=== PATIENT | male | born 1975 | race Caucasian/White ===

== ENCOUNTER 2016-05-26 02:42 | Emergency (ER) | payer BC ==
[~2016-05-26] VITALS: Ht 176.5 cm; Wt 130.6 kg
[~2016-05-26 02:42] MED LIST: HYDR25TA4 PO; LPR25 PO; METF-384 PO; MULT-506 PO; SUMA50TA15 PO
[2016-05-26 02:49] VITALS: Ht 176.5 cm; Wt 130.6 kg
[2016-05-26] MEDS ORDERED: SODIUM CHLORIDE 0.9% 1000ML 1,000 ML IV STA (03:14)
[2016-05-26] MEDS ORDERED: HYDROmorphone INJ 1 MG/ML SYR IV STA (03:14)
[2016-05-26] MEDS ORDERED: DiphenhydrAMINE HCL 50 MG/ML VIAL IV STA (03:14)
[2016-05-26] MEDS ORDERED: PROCHLORPERAZINE 5 MG/ML 2 ML VIAL IV STA (03:14)
--- NOTE | 2016-05-26 03:19 | EMERGENCY ROOM VISIT NOTE ---
History Report prepared by Feliciano: Cristina Olivier Under the Supervision of: Dr. Janice Gonzalez M.D. First contact with patient: 03:00 Chief Complaint: FLU LIKE SX Stated Complaint: DIAGNOSED W/ FLU-CHEST PAIN,HEAD PAIN, History of Present Illness The patient is a 40 year old male who presents to the Emergency Room with complaints of a worsening, gradual onset headache over the past 5 days. The patient states that he went to [facility] in [place] 3 days ago and was diagnosed with the flu. He was prescribed Tamiflu and is still taking it. Since then, he has had a headache, sore throat, and cough. His headache has been worsening and is exacerbated with light and changing positions. His cough is only occasional, but when he does cough, it is harsh and productive with thick sputum. 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 He has been taking ibuprofen. He has a history of migraine headaches but states his current headache feels a little different than a normal migraine. Denies neck pain, abdominal pain or other complaints. Past medical history includes type 2 diabetes. Source of History: patient Onset: 5 days ago Position: head Timing: worsening Modifying Factors (Worsening): other (light, position change) Associated Symptoms: + cough, + fevers (low grade), + sorethroat, No abdominal pain, No neck pain Review of Systems See HPI for pertinent positives & negatives. A total of 10 systems reviewed and were otherwise negative. Past Medical & Surgical Medical Problems: (1) Bronchitis (2) DEPRESSIVE DISORDER NEC (3) DIAB GIOVANNA WO COMPL, TYPE II OR UNSPEC TYPE, NOT UNCNTRLD (4) Diabetes (5) FAM HX-DIABETES MELLITUS (6) FAMILY HX-MALIGNANCY NOS (7) HTN (hypertension) (8) Hx of right shoulder surgery (9) HYPERLIPIDEMIA NEC/NOS (10) MIGRAINE UNSPECIFIED W/O INTRACT MGRN W/O STATUS MIGRAINOSUS (11) Pneumonia (12) TOBACCO USE DISORDER Surgical Problems: (1) History of herniorrhaphy (2) Hx of shoulder surgery Family History Diabetes mellitus FHx: gallbladder disease Hypertension Social History Smoking Status: Current Every Day Smoker Alcohol Use: none Marital Status: Occupation Status: employed Current/Historical Medications Scheduled Amoxicillin & Pot Clavulanate (Augmentin 875-125 mg), 875 MG PO BID Escitalopram Oxalate (Lexapro), 20 MG PO DAILY Metformin Hcl (Glucophage), 1,000 MG PO BID Multivitamin (Multivitamin), 1 TAB PO DAILY Oseltamivir (Tamiflu), 75 MG PO BID Sumatriptan Succinate (Imitrex), 100 MG PO PRN Allergies Coded Allergies: Dust (Verified Allergy, Unknown, CHALK DUST, 02/02/16) Latex1 -Allergic Contact Dermititis (Verified Allergy, Unknown, RASH, 02/01) PT STATES LATEX CAUSES REDNESS/SWELLING Physical Exam Vital Signs Date Time Temp Pulse Resp B/P Pulse Ox O2 Delivery O2 Flow Rate FiO2 05/26/16 06:16 82 18 120/85 95 05/26/16 04:04 79 18 121/68 94 Room Air 05/26/16 02:49 36.8 103 20 120/86 94 Room Air Physical Exam Vital signs reviewed. General: Anxious-appearing 40 year old male, tearful, in some discomfort. HEENT: No scleral icterus, PERRLA, neck supple. Atraumatic. Cardiovascular: Regular rate and rhythm, no extra sounds. Pulmonary: Clear to auscultation bilaterally, normal work of breathing. Abdomen: Soft, nontender, nondistended, positive bowel sounds. Musculoskeletal: Atraumatic, no peripheral edema. Neurologic: Patient awake alert and oriented x 3, full strength in all 4 extremities. Cranial nerves 2 through 12 grossly intact. No meningeal signs. Skin: Warm, dry, no rash Medical Decision & Procedures ER Provider Diagnostic Interpretation: X-ray results as stated below per my interpretation. Other radiology results as stated below per my review and radiologist interpretation: CT HEAD: Comparison is made to CT head dated 02/02/16. No ICH, mass effect, or edema. Palma -white differentiation preserved. No evidence of skull fracture. Ethmoid and right sphenoid sinusitis. Mastoid air cells clear. Radiologist: Sarahi Newsome MD Chest x-ray: Mild interstitial prominence, normal mediastinum, no focal lung consolidation, no failure. Laboratory Results 05/26/16 03:14 Red Blood Count 4.95, Mean Corpuscular Volume 87.1, Mean Corpuscular Hemoglobin 31.1, Mean Corpuscular Hemoglobin Concent 35.7, Mean Platelet Volume 11.5, Neutrophils (%) (Auto) 61.7, Lymphocytes (%) (Auto) 27.2, Monocytes (%) (Auto) 8.7, Eosinophils (%) (Auto) 1.8, Basophils (%) (Auto) 0.3, Neutrophils # (Auto) 4.48, Lymphocytes # (Auto) 1.97, Monocytes # (Auto) 0.63, Eosinophils # (Auto) 0.13, Basophils # (Auto) 0.02 05/26/16 03:14 Test 05/26/16 03:14 05/26/16 05:48 White Blood Count 7.25 K/uL (4.8-10.8) Red Blood Count 4.95 M/uL (4.7-6.1) Hemoglobin 15.4 g/dL (14.0-18.0) Hematocrit 43.1 % (42-52) Mean Corpuscular Volume 87.1 fL (80-100) Mean Corpuscular Hemoglobin 31.1 pg (25-34) Mean Corpuscular Hemoglobin Concent 35.7 g/dl (32-36) Platelet Count 148 K/uL (130-400) Mean Platelet Volume 11.5 fL (7.4-10.4) Neutrophils (%) (Auto) 61.7 % Lymphocytes (%) (Auto) 27.2 % Monocytes (%) (Auto) 8.7 % Eosinophils (%) (Auto) 1.8 % Basophils (%) (Auto) 0.3 % Neutrophils # (Auto) 4.48 K/uL (1.4-6.5) Lymphocytes # (Auto) 1.97 K/uL (1.2-3.4) Monocytes # (Auto) 0.63 K/uL (0.11-0.59) Eosinophils # (Auto) 0.13 K/uL (0-0.5) Basophils # (Auto) 0.02 K/uL (0-0.2) RDW Standard Deviation 41.9 fL (36.4-46.3) RDW Coefficient of Variation 13.1 % (11.5-14.5) Immature Granulocyte % (Auto) 0.3 % Immature Granulocyte # (Auto) 0.02 K/uL (0.00-0.02) Anion Gap 10.0 mmol/L (3-11) Est Creatinine Clear Calc Drug Dose 132.4 ml/min Estimated GFR () 108.6 Estimated GFR (Non- 93.7 BUN/Creatinine Ratio 9.4 (10-20) Calcium Level 9.0 mg/dl (8.5-10.1) Total Bilirubin 0.4 mg/dl (0.2-1) Direct Bilirubin 0.1 mg/dl (0-0.2) Aspartate Amino Transf (AST/SGOT) 24 U/L (15-37) Alanine Aminotransferase (ALT/SGPT) 61 U/L (12-78) Alkaline Phosphatase 100 U/L (45-117) Total Protein 7.4 gm/dl (6.4-8.2) Albumin 3.4 gm/dl (3.4-5.0) Beta-Hydroxybutyric Acid 0.82 mg/dL (0.2-2.81) Bedside Glucose 291 mg/dl (70-99) Laboratory results per my review. Medications Administered Medications (Trade) Dose Ordered Sig/Trev Route Start Time Stop Time Status Last Admin Dose Admin Sodium Chloride (Nss 1000ml) 1,000 ml @ 999 mls/hr Q1H1M STAT IV 05/26/16 03:14 05/26/16 04:14 DC 05/26/16 03:32 999 MLS/HR Hydromorphone HCl (Dilaudid Inj) 1 mg NOW STAT IV 05/26/16 03:14 05/26/16 03:17 DC 05/26/16 03:33 1 MG Prochlorperazine Edisylate (Compazine Inj) 10 mg NOW STAT IV 05/26/16 03:14 05/26/16 03:17 DC 05/26/16 03:32 10 MG Diphenhydramine HCl (Benadryl Inj) 25 mg NOW STAT IV 05/26/16 03:14 05/26/16 03:17 DC 05/26/16 03:14 25 MG Insulin Human Regular (novoLIN-R U-100 PER UNIT) 10 units NOW STAT SC 05/26/16 04:03 05/26/16 04:04 DC 05/26/16 04:26 10 UNITS Amoxicillin/ Clavulanate Potassium (Augmentin Tab) 875 mg NOW ONCE PO 05/26/16 04:15 05/26/16 04:16 DC 05/26/16 04:23 875 MG ED Course 0313: The patient was evaluated in room B10. A complete history and physical examination was performed. Ordered Benadryl Inj 25 mg IV, Compazine Inj 10 mg IV , Dilaudid Inj 1 mg IV, NSS 1000 ml @ 999 mls/hr IV. 0403: Ordered Insulin Human Regular 10 units SC. 0415: Ordered Augmentin Tab 875 mg PO. 0602: Upon reevaluation, the patient appeared to have improvement of his symptoms. I discussed findings with the patient. He verbalized agreement of the treatment plan. The patient was discharged home. Medical Decision Differential diagnosis: Intracranial hemorrhage, intracranial mass, migraine headache, tension headache , sinusitis, meningitis This pt was evaluated and appeared to be in significant discomfort. IV access was obtained and lab work was drawn. PT was placed on the cardiac tech. He was hydrated with NSS, given IV compazine, benadryl and dilaudid with good results. Lab work indicates an elevated glucose. Pt was given SQ regular insulin 10 units. BG showed some improvement. CT head reveals evidence of acute sinusitis, no IC abnl. Pt was reevaluated and doing well. Pt was started on 10 day course of Augmentin. He was d/c to f/u with his PCP this week and return to the ED for worsening of symptoms or any medical concerns. He will return to the ED for worsening of symptoms or any medical concerns. Impression Primary Impression: MIGRAINE UNSPECIFIED W/O INTRACT MGRN W/O STATUS MIGRAINOSUS Additional Impressions: Sinusitis, acute, sphenoidal Sinusitis, acute ethmoidal Influenza Scribe Attestation The scribe's documentation has been prepared under my direction and personally reviewed by me in its entirety. I confirm that the note above accurately reflects all work, treatment, procedures, and medical decision making performed by me. Departure Information Dispostion Home / Self-Care Prescriptions Amoxicillin & Pot Clavulanate (Augmentin 875-125 mg) 1 Tab Tab 875 MG PO BID for 10 Days, #20 TAB Prov: Janice Gonzalez M.D. 05/26/16 Referrals RV. Garg MD (PCP) Patient Instructions [facility] Additional Instructions Diagnosis: Headache, influenza Drink plenty of clear fluids. Tylenol 650 mg every 6 hours as needed for pain/fever. Augmentin 875 mg twice daily for 10 days. Continue other medications as prescribed. Follow up with your doctor this week for reevaluation. Return to emergency for worsening of symptoms or any medical concerns. Problem Qualifiers Additional Impressions: Sinusitis, acute, sphenoidal Recurrence: not specified as recurrent Qualified Codes: J01.30 - Acute sphenoidal sinusitis, unspecified Sinusitis, acute ethmoidal Recurrence: not specified as recurrent Qualified Codes: J01.20 - Acute ethmoidal sinusitis, unspecified
[2016-05-26 03:31] LABS: BASO % 0.3 %; BASO ABS # 0.02 K/uL (0-0.2); COMPLETE YES; EOS % 1.8 %; HEMATOCRIT 43.1 % (42-52); IG% 0.3 %; LYMPH % 27.2 %; LYMPH ABS # 1.97 K/uL (1.2-3.4); MEAN CELL VOLUME 87.1 fL (80-100); MEAN CORPUSCULAR HEMOGLOBIN 31.1 pg (25-34); MEAN CORPUSCULAR HGB CONC 35.7 g/dl (32-36); MEAN PLATELET VOLUME 11.5 fL (7.4-10.4); MONO % 8.7 %; NEUT % 61.7 %; PLATELET COUNT 148 K/uL (130-400); RED BLOOD COUNT 4.95 M/uL (4.7-6.1); WHITE BLOOD COUNT 7.25 K/uL (4.8-10.8)
[2016-05-26] MEDS ORDERED: OSEL75CA12 PO (03:50)
[2016-05-26] MEDS ORDERED: ESCI1TAB10 PO (03:52)
[2016-05-26] MEDS ORDERED: SUMA100T16 PO (03:53)
[2016-05-26 04:00] LABS: BUN/CREATININE RATIO 9.4 (10-20); POTASSIUM 3.8 mmol/L (3.5-5.1)
[2016-05-26] MEDS ORDERED: NovoLIN-R INSULIN PER UNIT CHARGE SC STA (04:03)
[2016-05-26 04:10] LABS: BETA-HYDROXYBUTYRATE 0.82 mg/dL (0.2-2.81)
[2016-05-26] MEDS ORDERED: AMOXICILLIN/CLAVULANATE TAB 875 MG TAB PO ONE (04:15)
[2016-05-26 06:16] VITALS: BP 120/85; PULSE 82; O2SAT 95
[2016-05-26] MEDS ORDERED: AMOX875T PO (06:19)
--- NOTE | 2016-05-26 07:15 | DIAGNOSTIC IMAGING REPORT ---
CHEST ONE VIEW PORTABLE CLINICAL HISTORY: Cough, flu. COMPARISON STUDY: Chest radiograph March 30, 2014. FINDINGS: Lung volumes are normal. No consolidation is identified. There is no pneumothorax or pleural effusion. Cardiac size is normal. Mediastinal contours are normal. Pulmonary vascularity is normal. IMPRESSION: No acute cardiopulmonary findings. Electronically signed by: Shaheed Owens M.D. 05/26/2016 7:14 AM Dictated Date/Time: 05/26/2016 7:14 AM
--- NOTE | 2016-05-26 07:17 | DIAGNOSTIC IMAGING REPORT ---
CT OF THE HEAD WITHOUT CONTRAST CLINICAL HISTORY: Headache. COMPARISON STUDY: Head CT February 02, 2016. CT DOSE: 651.12 mGy.cm TECHNIQUE: Helical axial images of the head were obtained without IV contrast. Automated exposure control was utilized for the study. FINDINGS: No acute intracranial hemorrhage, midline shift or mass effect is present. Note is made of a cavum of septum pellucidum. Ventricular system is stable. There are no findings to suggest acute dural sinus thrombosis or acute territorial infarct. There is an air-fluid level within the right sphenoid sinus. There is moderate mucosal thickening of the ethmoid sinuses. There is no calvarial abnormality. IMPRESSION: 1. No acute intracranial findings. 2. Right sphenoid and ethmoid sinusitis, likely acute. Electronically signed by: Shaheed Owens M.D. 05/26/2016 7:16 AM Dictated Date/Time: 05/26/2016 7:14 AM
== END 2016-05-26 06:18 | disposition home or self-care (01) ==
LOC: C.EDB 02:43
DX: J01.30 Acute sphenoidal sinusitis, unspecified (principal); J01.20 Acute ethmoidal sinusitis, unspecified; G43.909 Migraine, unspecified, not intractable, without status migrainosus; J11.1 Influenza due to unidentified influenza virus with other respiratory manifestations; I10 Essential (primary) hypertension; E11.9 Type 2 diabetes mellitus without complications; E78.5 Hyperlipidemia, unspecified; F32.9 Major depressive disorder, single episode, unspecified; F17.200 Nicotine dependence, unspecified, uncomplicated; Z98.890 Other specified postprocedural states; Z79.84 Long term (current) use of oral hypoglycemic drugs; Z79.899 Other long term (current) drug therapy; Z91.040 Latex allergy status; Z91.09 Other allergy status, other than to drugs and biological substances; Z83.3 Family history of diabetes mellitus; Z83.79 Family history of other diseases of the digestive system; Z82.49 Family history of ischemic heart disease and other diseases of the circulatory system

== ENCOUNTER 2020-12-12 19:34 | Inpatient (IN) ==
[2020-12-12] MEDS ORDERED: ACETAMINOPHEN 1,000 MG/100 ML VIAL IV STA (19:51)
[2020-12-12] MEDS ORDERED: SODIUM CHLORIDE 0.9% 1000ML 1,000 ML IV SCH (20:00)
[2020-12-12] MEDS ORDERED: CEFEPIME 2,000 MG/20 ML VIAL IV STA (20:03)
[2020-12-12] MEDS ORDERED: VANCOMYCIN HCL 2,000 MG in SODIUM CHLORIDE 0.9% 500 ML IV ONE (20:03)
[2020-12-12] MEDS ORDERED: VANCOMYCIN CONSULT ACTIVE PRN (20:03)
[2020-12-12 20:17] LABS: Basophils % (auto) 0.5 %; Eosinophils # (auto) 0.58 K/uL (0-0.5); Eosinophils % (auto) 2.8 %; Hematocrit (blood only) 45.1 % (42-52); Immature Granulocytes % (auto) 0.5 %; Lymphocytes # (auto) 3.93 K/uL (1.2-3.4); Lymphocytes % (auto) 19.2 %; Mean Corpuscular Hemoglobin 31.6 pg (25-34); Mean Corpuscular Hgb Conc 35.5 g/dL (32-36); Mean Platelet Volume 10.7 fL (7.4-10.4); Monocytes # (auto) 1.34 K/uL (0.11-0.59); Monocytes % (auto) 6.6 %; Neutrophils % (auto) 70.4 %; Platelet Count 313 K/uL (130-400); RDW Standard Deviation 42.1 fL (36.4-46.3); Red Blood Count 5.07 M/uL (4.7-6.1); White Blood Count 20.45 K/uL (4.8-10.8)
[2020-12-12] MEDS ORDERED: OPTIRAY 320 100ml IV ONE (20:17)
[2020-12-12 20:22] LABS: iSTAT Creatinine 0.7 mg/dl (0.6-1.3); iSTAT Hemoglobin 16.3 g/dl (14.0-18.0); iSTAT Ionized Calcium 1.09 mmol/l (1.12-1.32); iSTAT Potassium 4.4 mmol/L (3.3-5.0)
[2020-12-12 21:04] LABS: Albumin Globulin Ratio 0.7 (0.9-2); Albumin Level 3.6 gm/dl (3.4-5.0); BUN Creatinine Ratio 14.3 (10-20); Bilirubin,Total 0.6 mg/dl (0.2-1); Calcium 9.7 mg/dl (8.5-10.1); Creatinine Clr Calc Pharmacy 122.9 ml/min; Est GFR (African American) 120.2 ml/min; Est GFR (Non-African American) 103.7 ml/min; Globulin 5.1 gm/dl (2.5-4.0); Total Protein 8.7 gm/dl (6.4-8.2)
[2020-12-12] MEDS ORDERED: MoRPHine SULFATE 4 MG/ML 1 ML CARP\\VIAL IV STA (21:42)
--- NOTE | 2020-12-12 22:17 | History & Physical Report ---
Date of Service December 12, 2020 Assessment & Plan (1) Diabetes mellitus type 2, uncontrolled: Plan: 45 yo M with uncontrolled DM2, HLD, HTN, obesity admitted for management of hyperglycemia and scalp/occipital cellulitis. 1. 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 Occipital Cellulitis - 3x5x7 cm thickening of skin as noted on CT head without drainable abscess - wound culture pending - warm compresses, elevation of head of bed - vanc + cefepime in pt with uncontrolled DM2 - no signs of intracranial infection - skin marked with pen, monitor for spread 3. Pain - received 4 mg IV morphine in ED for management of head pain from cellulitis - additional 300 mg Gabapentin given to help with nerve compression likely contributing to severe pain - continue PO/IV tylenol, morphine 2mg IV Q6H PRN Chronic problems: HTN - not on medication HLD - not on medication, would benefit from starting on high dose statin DVT ppx: low risk FEN/GI: Dm2, famotidine Code Status: full code Dispo: med/surg (2) Dyslipidemia: (3) Hypertension: (4) Incisional hernia: (5) Morbid obesity: (6) Umbilical hernia: (7) Ventral hernia: (8) Hyperglycemia: (9) Cellulitis of occipital region of scalp: History of Present Illness Chief Complaint: head pain Primary Care Provider: Jackeline Baez MD 45 yoM with uncontrolled DM in ER for worsening headache and neck pain. States that he had a pimple "or what i thought was a pimple" on the back right side of his neck a few days ago and proceeded to pop it. He states after that, the irritation started spreading along his head and neck and is now causing constant head/neck pain. Denies any radiation of pain elsewhere. No blurring of vision, lightheadedness,dizziness. Does have pain with flexion, extension, lateral rotation of head bilaterally. Says pain starts in the back right of neck and wraps up the right side of his head. Tried warm and cold compresses at home, ibuprofen, tylenol, excedrin migraine without any relief. No hx of infections like this on his head but has been admitted for groin infections/cysts before. Allergies Allergy/AdvReac Type Severity Reaction Status Date / Time house dust Allergy Unknown Chalk dust Verified 12/12/20 20:20 - Unknown latex Allergy Unknown Rash Verified 12/12/20 20:20 No Known Drug Allergies AdvReac Unknown Verified 12/12/20 20:20 Home Medications Medication Instructions Recorded Confirmed Type multivitamin 1 tab PO QAM 08/13/18 12/12/20 History Past Med/Surg History Medical History Current smoker Diabetes HTN (hypertension) Obesity Scrotal abscess (11/10/13) Scrotal abscess Ventral hernia Surgical History History of arthroscopic knee surgery History of herniorrhaphy History of umbilical hernia repair History of ventral hernia repair Has mesh across his entire abdomen-Dr. Gomez Hx of shoulder surgery Family History Mother Diabetes Multiple sclerosis Sister SASCHA (obstructive sleep apnea) Autoimmune disorder Social History Smoking Status: Heavy tobacco smoker Tobacco Type: Cigarettes Years Smoked: 25; Cigarettes Per Day: 20; Second Hand Exposure: No; Do You Dip or Chew Tobacco: No; Tobacco Cessation Education Requested by Patient: No Hx Alcohol Use: Yes Alcohol type: beer Hx Substance Use: No Preferred Language: Burundian Communication Ability: Effective Wrap Checker Required: No Beliefs That Will Affect Care: None marital status: Single Current Living Situation: Family Current Living Situation Comment: Lives with 15 year old son. 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 Other Information That Helps Us Care for You: No Feels Safe at Home: Yes Safety Concerns: Feels Safe At This Time Assistive Devices: Glasses Review of Systems Constitutional: no fever, no chills, no sweats and no fatigue Eyes: no blind spots and no discharge Ear, Nose, Mouth, Throat: no hearing loss and no nasal congestion Respiratory: no cough and no dyspnea Cardiovascular: no chest pain, no dyspnea on exertion and no edema Gastrointestinal: no abdominal pain, no nausea, no vomiting, no constipation, no diarrhea/loose stools and no blood in stools Musculoskeletal: no joint pain and no myalgia Integumentary: + lesions, + wounds, + erythema and + skin swelling Neurologic: + headache(s); no tingling, no numbness, no dizziness and no abnormal speech Endocrine: no fatigue Physical Exam Physical Exam: Constitutional: obese, visibly distressed and crying in bed Head: erythematous, swollen, warm cellulitic area extending from posterior right base of neck to above right ear with central draining punctum. Eyes: EOMI, pupils equal and reactive bilaterally, no scleral icterus Cardiac: RRR, no murmurs, gallops or rubs. Normal S1, S2 Pulm: CTA BL, no wheezes, rhonchi, crackles or rubs, moving air well throughout both lungs Abd: soft, nontender, nondistended, normal bowel sounds, no rebound or guarding Extremities: 2+ peripheral pulses, no edema Neuro: no focal deficits, moving all 4 limbs, A&Ox3 Results & Data Results & Data ([facility]) Vital Signs (Past 12 Hours) Vital Signs Temp Pulse Pulse Resp BP BP Pulse Ox 12/12/20 21:49 97 H 16 135/85 97 12/12/20 20:50 101 H 20 146/94 H 97 12/12/20 19:43 36.4 C L 124 H 20 82/45 L 98 Laboratory Results Laboratory Results WBC 20.45 K/uL (4.8-10.8) H 12/12/20 20:00 RBC 5.07 M/uL (4.7-6.1) 12/12/20 20:00 Hgb 16.0 g/dL (14.0-18.0) 12/12/20 20:00 POC Hgb 16.3 g/dl (14.0-18.0) 12/12/20 20:10 Hct 45.1 % (42-52) 12/12/20 20:00 POC Hct 48 % (42-52) 12/12/20 20:10 MCV 89.0 fL (80-100) 12/12/20 20:00 MCH 31.6 pg (25-34) 12/12/20 20:00 MCHC 35.5 g/dL (32-36) 12/12/20 20:00 RDW Std Deviation 42.1 fL (36.4-46.3) 12/12/20 20:00 RDW Coeff of Giselle 13.0 % (11.5-14.5) 12/12/20 20:00 Plt Count 313 K/uL (130-400) 12/12/20 20:00 MPV 10.7 fL (7.4-10.4) H 12/12/20 20:00 Immature Gran % (Auto) 0.5 % 12/12/20 20:00 Neut % (Auto) 70.4 % 12/12/20 20:00 Lymph % (Auto) 19.2 % 12/12/20 20:00 Buchanan % (Auto) 6.6 % 12/12/20 20:00 Eos % (Auto) 2.8 % 12/12/20 20:00 Baso % (Auto) 0.5 % 12/12/20 20:00 Neut # (Auto) 14.40 K/uL (1.4-6.5) H 12/12/20 20:00 Lymph # (Auto) 3.93 K/uL (1.2-3.4) H 12/12/20 20:00 Buchanan # (Auto) 1.34 K/uL (0.11-0.59) H 12/12/20 20:00 Eos # (Auto) 0.58 K/uL (0-0.5) H 12/12/20 20:00 Baso # (Auto) 0.10 K/uL (0-0.2) 12/12/20 20:00 Immature Gran # (Auto) 0.10 K/uL (0.00-0.02) H 12/12/20 20:00 PT Cancelled 12/12/20 20:00 INR Cancelled 12/12/20 20:00 APTT Cancelled 12/12/20 20:00 PTT Ratio Cancelled 12/12/20 20:00 POC Sodium 136 mmol/L (135-144) 12/12/20 20:10 Sodium 132 mmol/L (136-145) L 12/12/20 20:00 POC Potassium 4.4 mmol/L (3.3-5.0) 12/12/20 20:10 Potassium mmol/L (3.5-5.1) 12/12/20 20:00 POC Chloride 98 mmol/L (101-112) L 12/12/20 20:10 Chloride 100 mmol/L (98-107) 12/12/20 20:00 Carbon Dioxide 23 mmol/L (21-32) 12/12/20 20:00 POC Total CO2 25 mmol/L (24-31) 12/12/20 20:10 Anion Gap 9.0 (3-11) 12/12/20 20:00 POC Anion Gap 19.0 mmol/L (16-25) 12/12/20 20:10 POC BUN 16 mg/dl (7-18) 12/12/20 20:10 BUN 13 mg/dl (7-18) 12/12/20 20:00 Creatinine 0.88 mg/dl (0.6-1.4) 12/12/20 20:00 POC Creatinine 0.7 mg/dl (0.6-1.3) 12/12/20 20:10 Est Cr Clr Drug Dosing 122.9 ml/min 12/12/20 20:00 Est GFR ( Amer) 120.2 ml/min 12/12/20 20:00 Est GFR (Non-Af Amer) 103.7 ml/min 12/12/20 20:00 BUN/Creatinine Ratio 14.3 (10-20) 12/12/20 20:00 Glucose 309 mg/dl (70-99) H* 12/12/20 20:00 POC Glucose 323 mg/dl (70-99) H* 12/12/20 19:59 POC Glucose (other) 319 mg/dl (70-99) H 12/12/20 20:10 Lactate 1.3 mmol/L (0.4-2.0) 12/12/20 20:02 Calcium 9.7 mg/dl (8.5-10.1) 12/12/20 20:00 POC Ioniz Calcium Veronica 1.09 mmol/l (1.12-1.32) L 12/12/20 20:10 Magnesium mg/dl (1.8-2.4) 12/12/20 20:00 Total Bilirubin 0.6 mg/dl (0.2-1) 12/12/20 20:00 AST U/L (15-37) 12/12/20 20:00 ALT 19 U/L (12-78) 12/12/20 20:00 Alkaline Phosphatase 116 U/L (45-117) 12/12/20 20:00 Total Protein 8.7 gm/dl (6.4-8.2) H 12/12/20 20:00 Albumin 3.6 gm/dl (3.4-5.0) 12/12/20 20:00 Globulin 5.1 gm/dl (2.5-4.0) H 12/12/20 20:00 Albumin/Globulin Ratio 0.7 (0.9-2) L 12/12/20 20:00 Beta-Hydroxybutyric Acd mg/dl (0.2-2.81) 12/12/20 20:00 COVID-19 Eval Order Covid19 at [facility] 12/12/20 20:19 SARS-CoV-2 (PCR) NEGATIVE (Negative) 12/12/20 20:[address] Head - per STAT rad - Large area of soft tissue thickening right occiput measuring about 3 x 5 x 6cm extending to the craniocervical junction compatible with infection/inflammation. No drainable or mature absccess. No adjacent bony changes or acute intracranial abnormality Medications Administered Discontinued Medications Sodium Chloride (Nss 1000ml) 1,000 mls @ 999 mls/hr IV .Q1H1M OLGA Stop: 12/12/20 21:00 Last Infusion: 12/12/20 21:46 Dose: 0 mls/hr Documented by: [id number] Admin: 12/12/20 20:45 Dose: 999 mls/hr Documented by: [id number] Acetaminophen (Ofirmev) 1,000 mg in 100 mls @ 400 mls/hr IV NOW STA Stop: 12/12/20 20:05 Last Infusion: 12/12/20 21:10 Dose: 0 mls/hr Documented by: [id number] Admin: 12/12/20 20:45 Dose: 400 mls/hr Documented by: [id number] Vancomycin HCl 2,000 mg/ (Sodium Chloride) 540 mls @ 200 mls/hr IV NOW ONE Stop: 12/12/20 22:44 Last Admin: 12/12/20 20:45 Dose: 200 mls/hr Documented by: [id number] Cefepime HCl (Maxipime) 2,000 mg in 20 mls @ 5 mls/min IV NOW STA; Protocol Stop: 12/12/20 20:06 Last Admin: 12/12/20 20:45 Dose: 5 mls/min Documented by: [id number] Ioversol (Optiray 320 100ml) 94 ml IV ONCE ONE Stop: 12/12/20 20:18 Last Admin: 12/12/20 20:18 Dose: 1 ml Documented by: [id number] Morphine Sulfate (Morphine Sulfate 4 Mg/Ml 1 Ml Carp\\Vial) 4 mg IV NOW STA Stop: 12/12/20 21:43 Last Admin: 12/12/20 21:46 Dose: 4 mg Documented by: [id number] Supervising Physician Co-Signing Physician Notes Patient seen and examined, chart reviewed, case discussed with Dr. Kulkarni and I agree with her assessment and plan as above. In brief, patient is a 45yo male with history of DM, HTN presenting with posterior scalp lesion/cellulitis and severe pain. He is afebrile, HD stable, denies complaints of fever/chills/nausea/vomiting/malaise. Afebrile, HD stable. Patient is in distress secondary to discomfort. Weeping Skin -posterior neck warm, red, thickened with purulent drainage HEENT - NC/AT, PERRL, MMM Heart - +S1/S2, regular, no m/r/g Lungs - CTA Abd - +BS, soft, NT/ND Ext - No edema Labs and images reviewed. Significant for WBC=20.44, Hu=479 Assessment/Plan - 45yo male with DM, HTN, Obestiy presenting with posterior scalp lesion and cellulitis. Afebrile, HD stable, no evidence of systemic infection or intracranial involvement. He is in considerable pain - possible neuropathic component as well. -Vanc/Cefepime -Warm compresses - may benefit from reimaging in a few days to see if abscess or drainable collection has formed -Pain control -Remainder of plan as above Resident Activity Tracking Resident Involvement: Resident Care Provided Care Provided: Adult Hospital Medicine
[2020-12-12] MEDS ORDERED: GABAPENTIN 300 MG CAP PO STA (22:36)
[2020-12-12] MEDS ORDERED: NovoLIN-R INSULIN PER UNIT CHARGE IV STA (23:02)
[2020-12-13] MEDS ORDERED: DEXTROSE 50% 50 ML SYRINGE IV PRN (00:14)
[2020-12-13] MEDS ORDERED: VANCOMYCIN CONSULT ACTIVE PRN (00:14)
[2020-12-13] MEDS ORDERED: GLUCOSE 40% GEL 15 GM TUBE PO PRN (00:14)
[2020-12-13] MEDS ORDERED: GLUCOSE 10 TABS/TUBE PO PRN (00:14)
[2020-12-13] MEDS ORDERED: GLUCAGON FOR INJ 1 MG VIAL SQ PRN (00:14)
[2020-12-13] MEDS ORDERED: CARBOHYDRATES FOR HYPOGLYCEMIA PO PRN (00:14)
--- NOTE | 2020-12-13 01:29 | Emergency Department Note ---
History of Present Illness General Chief complaint: Head Pain Stated complaint: BACK OF RIGHT SIDE HEAD PAIN Time Seen by Provider: 12/12/20 19:50 History of Present Illness Provider complaint: Headache fever Onset (ago): day(s) 2 Location: head Radiation: non-radiation Severity: severe Pain Consistency: + constant Maximum Pain Intensity: 9 Current Pain Intensity: 9 Quality: + aching Relieved By: + none Exacerbated By: + none Associated symptoms: + fever/chills, + headaches and + rash; no chest pain, no cough, no malaise, no nausea/vomiting, no shortness of breath, no syncope or no weakness 45-year-old male diabetic who is noncompliant with medications presents emergency department for headache and fever. Patient states he thought he had a pimple on the back of his head and he started picking at it and then it popped and was draining pus. He states over the last 2 days the pain around that area has become increasingly worse and so the drainage. He states his girlfriend stated she thought he might have been bit by a spider or another insect. He states he is not vaccinated as COVID-19 and is not compliant with his diabetes medications. Patient reports fever today. Home Medications Medication Instructions Recorded Confirmed Type multivitamin 1 tab PO QAM 08/13/18 12/12/20 History Allergies Allergy/AdvReac Type Severity Reaction Status Date / Time house dust Allergy Unknown Chalk dust Verified 12/12/20 20:20 - Unknown latex Allergy Unknown Rash Verified 12/12/20 20:20 No Known Drug Allergies AdvReac Unknown Verified 12/12/20 20:20 Past Med/Surg History Medical History (Updated 12/13/20 @ 01:42 by Bassam Howell) Current smoker Diabetes HTN (hypertension) Obesity Scrotal abscess (11/10/13) Scrotal abscess Ventral hernia Surgical History History of arthroscopic knee surgery History of herniorrhaphy History of umbilical hernia repair History of ventral hernia repair Has mesh across his entire abdomen-Dr. 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 Other Information That Helps Us Care for You: No Feels Safe at Home: Yes Safety Concerns: Feels Safe At This Time Assistive Devices: Glasses Review of Systems A total of 10 systems reviewed and were otherwise negative Physical Exam Vital Signs Vital Signs - 24 hr 12/12/20 19:43 12/12/20 20:50 12/12/20 21:00 Temperature 36.4 C L Temperature Source Temporal Artery Scan Pulse Rate 124 H 101 H 99 H Pulse Rate [Right] Pulse Rate from SpO2 Sensor 100 H Respiratory Rate 20 20 16 Respiratory Effort / Characteristics Respiratory Depth Blood Pressure 82/45 L 146/94 H 140/88 Blood Pressure [Right Arm] Blood Pressure Mean 57 111 105 Blood Pressure Mean [Right Arm] Pulse Oximetry 98 97 96 Oxygen Delivery Method Room Air Room Air Sepsis Recent Fever Within 48 Hours No Sepsis New/Unexplained Change in Mental Status N/A Sepsis Action Taken by Nursing Physician Notified 12/12/20 21:30 12/12/20 21:49 12/12/20 22:00 Temperature Temperature Source Pulse Rate 96 H 91 H Pulse Rate [Right] 97 H Pulse Rate from SpO2 Sensor 97 H 91 H Respiratory Rate 16 16 16 Respiratory Effort / Characteristics Non-Labored Spontaneous Respiratory Depth Normal Blood Pressure 136/85 122/84 Blood Pressure [Right Arm] 135/85 Blood Pressure Mean 102 96 Blood Pressure Mean [Right Arm] 101 Pulse Oximetry 98 97 97 Oxygen Delivery Method Room Air Sepsis Recent Fever Within 48 Hours Sepsis New/Unexplained Change in Mental Status Sepsis Action Taken by Nursing Physical Exam GENERAL: He is oriented to person, place, and time. He appears well-developed and well-nourished. He does not appear distressed. HENT: Exam performed. - Head: Large erythematous fluctuant lesion on the posterior scalp that is actively draining purulent discharge. - Right Ear: External ear normal. No mastoid tenderness. - Left Ear: External ear normal. No mastoid tenderness. - Mouth/Throat: The oropharynx is clear and moist. No trismus in the jaw. No dental abscesses or uvula swelling. No oropharyngeal exudate or tonsillar abscesses. EYES: Conjunctivae and EOM are normal. Pupils are equal, round, and reactive to light. Right eye exhibits no discharge. Left eye exhibits no discharge. No scleral icterus. NECK: Normal range of motion. Neck supple. No JVD present. No spinous process tenderness present. No carotid bruit present. No rigidity. No tracheal deviation and normal range of motion present. No Brudzinski's sign and no Kernig's sign noted. CV: Normal rate, regular rhythm, normal heart sounds and intact distal pulses. There is no peripheral edema. Palpable radial pulses bue. PULM/CHEST: Effort normal and breath sounds normal. No respiratory distress. No stridor. He has no wheezes. He has no rales. - Chest Wall: He exhibits no tenderness. ABD: The abdomen is soft. Bowel sounds are normal. He has no distension. No mass is present. There is no tenderness. There is no rebound, no guarding, no Kaye's sign and no tenderness at McBurney's point. Rovsig negative. MUSC/SKEL: Normal range of motion. There is no peripheral edema, tenderness or deformity. LYMPH: No cervical adenopathy. NEURO: He is alert and oriented to person, place, and time. He has normal strength. No cranial nerve deficit or sensory deficit. Coordination and gait normal. GCS eye subscore is 4. GCS verbal subscore is 5. GCS motor subscore is 6. Cerebellar tests wnl. PSYCH: He has a normal mood and affect. Behavior is normal. Judgment and thought content normal. Course Course 1950: The patient was evaluated in room B5. A complete history and physical exam was performed Cardiac monitoring: An order was placed for continuous cardiac monitoring. The monitor shows a rate of 110 with sinus tachycardia rhythm 2115: Vital signs stable. Labs elevated white blood cell count of 20. CT of the head shows no drainable fluid collection. Patient will be admitted for cellulitis of the occipital region. Patient treated with Vanco and cefepime. Administered Medications Discontinued Medications Gabapentin (Gabapentin 300 Mg Cap) 300 mg PO NOW STA Stop: 12/12/20 22:37 Last Admin: 12/12/20 23:43 Dose: 300 mg Documented by: [id number] Sodium Chloride (Nss 1000ml) 1,000 mls @ 999 mls/hr IV .Q1H1M OLGA Stop: 12/12/20 21:00 Last Infusion: 12/12/20 21:46 Dose: 0 mls/hr Documented by: [id number] Admin: 12/12/20 20:45 Dose: 999 mls/hr Documented by: [id number] Acetaminophen (Ofirmev) 1,000 mg in 100 mls @ 400 mls/hr IV NOW STA Stop: 12/12/20 20:05 Last Infusion: 12/12/20 21:10 Dose: 0 mls/hr Documented by: [id number] Admin: 12/12/20 20:45 Dose: 400 mls/hr Documented by: [id number] Vancomycin HCl 2,000 mg/ (Sodium Chloride) 540 mls @ 200 mls/hr IV NOW ONE Stop: 12/12/20 22:44 Last Infusion: 12/12/20 23:46 Dose: 0 mls/hr Documented by: [id number] Admin: 12/12/20 20:45 Dose: 200 mls/hr Documented by: [id number] Cefepime HCl (Maxipime) 2,000 mg in 20 mls @ 5 mls/min IV NOW STA; Protocol Stop: 12/12/20 20:06 Last Admin: 12/12/20 20:45 Dose: 5 mls/min Documented by: [id number] Insulin Human Regular (Novolin-R Insulin Per Unit Charge) 10 units IV NOW STA Stop: 12/12/20 23:03 Last Admin: 12/12/20 23:49 Dose: 10 units Documented by: [id number] Cosigned by: [id number] Ioversol (Optiray 320 100ml) 94 ml IV ONCE ONE Stop: 12/12/20 20:18 Last Admin: 12/12/20 20:18 Dose: 1 ml Documented by: [id number] Morphine Sulfate (Morphine Sulfate 4 Mg/Ml 1 Ml Carp\Vial) 4 mg IV NOW STA Stop: 12/12/20 21:43 Last Admin: 12/12/20 21:46 Dose: 4 mg Documented by: [id number] Medical Decision Making Laboratory Data Result diagrams: 12/12/20 20:00 12/12/20 20:00 Lab Results 12/12/20 12/12/2021 Range/Units 19:59 20:00 20:00 WBC 20.45 H (4.8-10.8) K/uL RBC 5.07 (4.7-6.1) M/uL Hgb 16.0 (14.0-18.0) g/dL POC Hgb (14.0-18.0) g/dl Hct 45.1 (42-52) % POC Hct (42-52) % MCV 89.0 (80-100) fL MCH 31.6 (25-34) pg MCHC 35.5 (32-36) g/dL RDW Std Deviation 42.1 (36.4-46.3) fL RDW Coeff of Giselle 13.0 (11.5-14.5) % Plt Count 313 (130-400) K/uL MPV 10.7 H (7.4-10.4) fL Immature Gran % (Auto) 0.5 % Neut % (Auto) 70.4 % Lymph % (Auto) 19.2 % [place] % (Auto) 6.6 % Eos % (Auto) 2.8 % Baso % (Auto) 0.5 % Neut # (Auto) 14.40 H (1.4-6.5) K/uL Lymph # (Auto) 3.93 H (1.2-3.4) K/uL [place] # (Auto) 1.34 H (0.11-0.59) K/uL Eos # (Auto) 0.58 H (0-0.5) K/uL Baso # (Auto) 0.10 (0-0.2) K/uL Immature Gran # (Auto) 0.10 H (0.00-0.02) K/uL PT Cancelled INR Cancelled APTT Cancelled PTT Ratio Cancelled POC Sodium (135-144) mmol/L Sodium (136-145) mmol/L POC Potassium (3.3-5.0) mmol/L Potassium (3.5-5.1) mmol/L POC Chloride (101-112) mmol/L Chloride (98-107) mmol/L Carbon Dioxide (21-32) mmol/L POC Total CO2 (24-31) mmol/L Anion Gap (3-11) POC Anion Gap (16-25) mmol/L POC BUN (7-18) mg/dl BUN (7-18) mg/dl Creatinine (0.6-1.4) mg/dl POC Creatinine (0.6-1.3) mg/dl Est Cr Clr Drug Dosing ml/min Est GFR ( Amer) ml/min Est GFR (Non-Af Amer) ml/min BUN/Creatinine Ratio (10-20) Glucose (70-99) mg/dl POC Glucose 323 H* (70-99) mg/dl POC Glucose (other) (70-99) mg/dl Lactate (0.4-2.0) mmol/L Calcium (8.5-10.1) mg/dl POC Ioniz Calcium Veronica (1.12-1.32) mmol/l Magnesium (1.8-2.4) mg/dl Total Bilirubin (0.2-1) mg/dl AST (15-37) U/L ALT (12-78) U/L Alkaline Phosphatase (45-117) U/L Total Protein (6.4-8.2) gm/dl Albumin (3.4-5.0) gm/dl Globulin (2.5-4.0) gm/dl Albumin/Globulin Ratio (0.9-2) Beta-Hydroxybutyric Acd (0.2-2.81) mg/dl COVID-19 Eval Order SARS-CoV-2 (PCR) (Negative) 12/12/20 12/12/20 12/12/20 Range/Units 20:00 20:02 20:10 WBC (4.8-10.8) K/uL RBC (4.7-6.1) M/uL Hgb (14.0-18.0) g/dL POC Hgb 16.3 (14.0-18.0) g/dl Hct (42-52) % POC Hct 48 (42-52) % MCV (80-100) fL MCH (25-34) pg MCHC (32-36) g/dL RDW Std Deviation (36.4-46.3) fL RDW Coeff of Giselle (11.5-14.5) % Plt Count (130-400) K/uL MPV (7.4-10.4) fL Immature Gran % (Auto) % Neut % (Auto) % Lymph % (Auto) % [place] % (Auto) % Eos % (Auto) % Baso % (Auto) % Neut # (Auto) (1.4-6.5) K/uL Lymph # (Auto) (1.2-3.4) K/uL [place] # (Auto) (0.11-0.59) K/uL Eos # (Auto) (0-0.5) K/uL Baso # (Auto) (0-0.2) K/uL Immature Gran # (Auto) (0.00-0.02) K/uL PT INR APTT PTT Ratio POC Sodium 136 (135-144) mmol/L Sodium 132 L (136-145) mmol/L POC Potassium 4.4 (3.3-5.0) mmol/L Potassium (3.5-5.1) mmol/L POC Chloride 98 L (101-112) mmol/L Chloride 100 (98-107) mmol/L Carbon Dioxide 23 (21-32) mmol/L POC Total CO2 25 (24-31) mmol/L Anion Gap 9.0 (3-11) POC Anion Gap 19.0 (16-25) mmol/L POC BUN 16 (7-18) mg/dl BUN 13 (7-18) mg/dl Creatinine 0.88 (0.6-1.4) mg/dl POC Creatinine 0.7 (0.6-1.3) mg/dl Est Cr Clr Drug Dosing 122.9 ml/min Est GFR ( Amer) 120.2 ml/min Est GFR (Non-Af Amer) 103.7 ml/min BUN/Creatinine Ratio 14.3 (10-20) Glucose 309 H* (70-99) mg/dl POC Glucose (70-99) mg/dl POC Glucose (other) 319 H (70-99) mg/dl Lactate 1.3 (0.4-2.0) mmol/L Calcium 9.7 (8.5-10.1) mg/dl POC Ioniz Calcium Veronica 1.09 L (1.12-1.32) mmol/l Magnesium (1.8-2.4) mg/dl Total Bilirubin 0.6 (0.2-1) mg/dl AST (15-37) U/L ALT 19 (12-78) U/L Alkaline Phosphatase 116 (45-117) U/L Total Protein 8.7 H (6.4-8.2) gm/dl Albumin 3.6 (3.4-5.0) gm/dl Globulin 5.1 H (2.5-4.0) gm/dl Albumin/Globulin Ratio 0.7 L (0.9-2) Beta-Hydroxybutyric Acd (0.2-2.81) mg/dl COVID-19 Eval Order SARS-CoV-2 (PCR) (Negative) 12/12/20 12/12/20 Range/Units 20:19 20:19 WBC (4.8-10.8) K/uL RBC (4.7-6.1) M/uL Hgb (14.0-18.0) g/dL POC Hgb (14.0-18.0) g/dl Hct (42-52) % POC Hct (42-52) % MCV (80-100) fL MCH (25-34) pg MCHC (32-36) g/dL RDW Std Deviation (36.4-46.3) fL RDW Coeff of Giselle (11.5-14.5) % Plt Count (130-400) K/uL MPV (7.4-10.4) fL Immature Gran % (Auto) % Neut % (Auto) % Lymph % (Auto) % [place] % (Auto) % Eos % (Auto) % Baso % (Auto) % Neut # (Auto) (1.4-6.5) K/uL Lymph # (Auto) (1.2-3.4) K/uL [place] # (Auto) (0.11-0.59) K/uL Eos # (Auto) (0-0.5) K/uL Baso # (Auto) (0-0.2) K/uL Immature Gran # (Auto) (0.00-0.02) K/uL PT INR APTT PTT Ratio POC Sodium (135-144) mmol/L Sodium (136-145) mmol/L POC Potassium (3.3-5.0) mmol/L Potassium (3.5-5.1) mmol/L POC Chloride (101-112) mmol/L Chloride (98-107) mmol/L Carbon Dioxide (21-32) mmol/L POC Total CO2 (24-31) mmol/L Anion Gap (3-11) POC Anion Gap (16-25) mmol/L POC BUN (7-18) mg/dl BUN (7-18) mg/dl Creatinine (0.6-1.4) mg/dl POC Creatinine (0.6-1.3) mg/dl Est Cr Clr Drug Dosing ml/min Est GFR ( Amer) ml/min Est GFR (Non-Af Amer) ml/min BUN/Creatinine Ratio (10-20) Glucose (70-99) mg/dl POC Glucose (70-99) mg/dl POC Glucose (other) (70-99) mg/dl Lactate (0.4-2.0) mmol/L Calcium (8.5-10.1) mg/dl POC Ioniz Calcium Veronica (1.12-1.32) mmol/l Magnesium (1.8-2.4) mg/dl Total Bilirubin (0.2-1) mg/dl AST (15-37) U/L ALT (12-78) U/L Alkaline Phosphatase (45-117) U/L Total Protein (6.4-8.2) gm/dl Albumin (3.4-5.0) gm/dl Globulin (2.5-4.0) gm/dl Albumin/Globulin Ratio (0.9-2) Beta-Hydroxybutyric Acd (0.2-2.81) mg/dl COVID-19 Eval Order Covid19 at [facility] SARS-CoV-2 (PCR) NEGATIVE (Negative) Imaging Data My Impression: Chest x-ray negative. Airway clear. No pneumothorax. No consolidation. No cardiomegaly or cephalization.. No free air under the diaph ragm. No fractures of the skeletal structures. Radiologist's Impression: Preliminary Findings Only See Final Report For Complete Findings CT HEAD, with contrast: Lopez is made with head CT May 26, 2016. Large area of soft tissue thickening right occiput, measuring about 3 x 5 x 6 cm, extending to the craniocervical junction, compatible with infection/inflammation; no drainable or mature abscess. No adjacent bony changes or acute intracranial abnormality. ECG Data Indication: + other (fever) Rate (beats per minute): 113 Rhythm: + sinus tachycardia ECG Intervals/blocks: + Normal QRS, + Normal MT and + Normal QT-c ECG ST segments: + Normal ST segments MDM Narrative Vital signs stable. Labs elevated white blood cell count of 20. CT of the head shows no drainable fluid collection. Patient will be admitted for cellulitis of the occipital region. Patient treated with Vanco and cefepime. Impression & Plan Cellulitis of occipital region of scalp Discharge Plan Visit Data Chief Complaint: Head Pain Stated Complaint: BACK OF RIGHT SIDE HEAD PAIN Discharge Problem: Cellulitis of occipital region of scalp Patient Disposition: Admitted As Inpatient Discharge Instructions Interventions: ED Discharge Assessment Last Done: 12/12/20 23:55
[2020-12-13] MEDS: MoRPHine SULFATE 2 MG/ML CARP IV PRN ×5 (02:05→22:27)
[2020-12-13] MEDS: VANCOMYCIN HCL 1,500 MG in SODIUM CHLORIDE 0.9% 500 ML IV SCH ×3 (02:20→18:47)
[2020-12-13] MEDS: INSULIN ASPART 100 UNITS/ML 3 ML PEN SC SCH ×5 (02:36→20:51)
[2020-12-13] MEDS: INSULIN GLARGINE SOLOSTAR 100 UNITS/ML 3 ML PEN SC SCH ×3 (02:37→21:04)
--- NOTE | 2020-12-13 03:57 | Billing Data ---
Date of Service December 13, 2020 Coding Level of Care Code 65533 Initial Inpt Care Lvl 3
--- NOTE | 2020-12-13 03:58 | Billing Data ---
Date of Service December 12, 2020 Coding Level of Care Code 21759 Initial Inpt Care Lvl 3
[2020-12-13] MEDS ORDERED: CYCLOBENZAPRINE HCL 5 MG TAB PO ONE (07:00)
--- NOTE | 2020-12-13 07:09 | XRay Report ---
XR chest 1V portable CLINICAL HISTORY: SEPSIS COMPARISON STUDY: May 07, 2019 FINDINGS: No pneumothorax. No pleural effusion. No large infiltrates or consolidative lesions are seen. Cardiomediastinal silhouette is within normal limits in size. No significant pulmonary vascular congestion.. Osseous structures: unremarkable IMPRESSION: 1. No acute pulmonary process. ACT 112: Negative or not required by law. The above report was generated using voice recognition software. It may contain grammatical, syntax o r spelling errors. Electronically signed by: Apple Andujar DO 12/13/2020 7:07 AM
--- NOTE | 2020-12-13 07:23 | CT Scan Report ---
CT OF THE BRAIN WITH IV CONTRAST CLINICAL HISTORY: occipital abscess COMPARISON STUDY: May 26, 2016. TECHNIQUE: Axial CT of the brain is performed from the vertex to the skull base. IV contrast was ad ministered for this examination. A dose lowering technique was utilized adhering to the principles o f ALARA. CT DOSE: 691.05 mGy.cm DISCUSSION: Brain parenchyma: The brain parenchyma is normal in appearance. There is no hemorrhage, mass effect, or evidence of acute territorial ischemia by CT criteria. Palma-white matter differentiation is mainta ined. No extra-axial fluid collection is seen. Ventricles, sulci and cisterns: Right frontal horn is asymmetrically smaller than left, findings are stable since prior study in 2017. Cavum septum pellucidum and Vergie are again seen representing deve lopmental variant. Intracranial vasculature: Appear normal and this nondedicated exam. Calvarium: No acute depressed skull fractures. There is prominent edema of the right occipital scalp which extends to the craniocervical junction wi th heterogeneous enhancement, however no drainable fluid or collection seen. Sinuses and mastoids: There is partial opacification of the left ethmoid air cells. The rest of visua lized paranasal sinuses and mastoid air cells are patent and well-aerated. Orbits: Grossly intact. IMPRESSION: [ 1. No acute intracranial hemorrhage, no midline shift or space occupying lesions. 2. Prominent edema involves the right occipital scalp consistent with infectious/inflammatory proces s. No evidence of abscess or drainable fluid collection is seen at this time. No adjacent bony change s. 3. Sinusitis. ACT 112: Negative or not required by law. The above report was generated using voice recognition software. It may contain grammatical, syntax o r spelling errors. Electronically signed by: Apple Andujar DO 12/13/2020 7:22 AM
[2020-12-13] MEDS ORDERED: CEFEPIME 2,000 MG in SYRINGE 0 ML IV SCH ×2 (08:00)
[2020-12-13 08:30] LABS: Basophils # (auto) 0.09 K/uL (0-0.2); Basophils % (auto) 0.7 %; Eosinophils # (auto) 0.67 K/uL (0-0.5); Eosinophils % (auto) 5.1 %; Hematocrit (blood only) 39.4 % (42-52); Hemoglobin 13.5 g/dL (14.0-18.0); Immature Granulocytes # (auto) 0.08 K/uL (0.00-0.02); Immature Granulocytes % (auto) 0.6 %; Lymphocytes # (auto) 2.72 K/uL (1.2-3.4); Lymphocytes % (auto) 20.7 %; Mean Corpuscular Hemoglobin 30.5 pg (25-34); Mean Corpuscular Hgb Conc 34.3 g/dL (32-36); Mean Corpuscular Volume 89.1 fL (80-100); Mean Platelet Volume 10.5 fL (7.4-10.4); Monocytes # (auto) 0.98 K/uL (0.11-0.59); Monocytes % (auto) 7.5 %; Neutrophils # (auto) 8.59 K/uL (1.4-6.5); Neutrophils % (auto) 65.4 %; Platelet Count 285 K/uL (130-400); RDW Coefficient of Variation 12.9 % (11.5-14.5); RDW Standard Deviation 42.2 fL (36.4-46.3); Red Blood Count 4.42 M/uL (4.7-6.1); White Blood Count 13.13 K/uL (4.8-10.8)
[2020-12-13 08:33] LABS: Estimated Average Glucose 295 mg/dl; Hemoglobin A1C 11.9 % (4.5-5.6)
[2020-12-13 09:03] LABS: Calcium 8.6 mg/dl (8.5-10.1); Creatinine Clr Calc Pharmacy 204.7 ml/min; Est GFR (African American) 144.8 ml/min; Est GFR (Non-African American) 124.9 ml/min; Potassium 3.9 mmol/L (3.5-5.1)
--- NOTE | 2020-12-13 11:00 | Pharmacy Report ---
Pharmacy Vanc AUC Short Note - Date of Service December 13, 2020 - Assessment & Plan Assessment 45 year old M receiving Vancomycin and Cefepime for treatment of scalp cellulitis. * PMHx significant for T2DM, smoking, and obesity. A1c significantly elevated which may promote infection. * Renal function is stable. Leukocytosis improved to 13,000. * Blood and scalp cultures are pending Plan Vancomycin * AUC/LEOBARDO is the preferred PK/PD target for vancomycin * AUC guided dosing is effective and associated with decreased risk of nephrotoxicity compared to traditional trough targets * Loading dose: 2000 mg (18 mg/kg) IV x 1 * Maintenance dose: 1500 mg (13.5 mg/kg) IV every 8 hours * Goal trough level: ~15 mcg/mL * Trough level ordered for this evening prior to steady state secondary to patient's BMI and risk of accumulation Cefepime - pharmacy not consulted * 2000 mg IV every 12 hours remains appropriate Pharmacy will continue to follow and will adjust dose/frequency as necessary. Thank you.
--- NOTE | 2020-12-13 15:02 | Hospitalist Progress Note ---
Date of Service December 13, 2020 Assessment & Plan (1) Diabetes mellitus type 2, uncontrolled: Plan: 45 yo M with uncontrolled DM2, HLD, HTN, obesity admitted for management of hyperglycemia and scalp/occipital cellulitis. 1. Hyperglycemia - 10 units regular insulin IV x1 in ER - 12 units glargine BID SQ for basal control - SSI with range 110 -150, CF 40, CR 20 adjusted to range 110 -150, CF 30, CR 10 - A1c 11.9 - per patient, can't afford insulin at home and has been trying to control sugars with watching dietary intake - Consulted produce team member -Discussed in depth importance of diet and exercise to improve DM2. Patient listened with hesitation to improve. 2. Occipital Cellulitis - 3x5x7 cm thickening of skin as noted on CT head without drainable abscess - wound and blood culture pending - warm compresses, elevation of head of bed - started on vanc + cefepime in pt with uncontrolled DM2; now only on vanc based on severity and most common causative bacteria - no signs of intracranial infection - skin marked with pen, monitor for spread 3. Pain - received 4 mg IV morphine in ED for management of head pain from cellulitis - additional 300 mg Gabapentin given to help with nerve compression likely contributing to severe pain- discontinued - continue PO/IV tylenol, morphine 2mg IV Q4H PRN Chronic problems: HTN - not on medication DVT ppx: low risk FEN/GI: DM2 Code Status: full code Dispo: med/surg (2) Dyslipidemia: (3) Hypertension: (4) Incisional hernia: (5) Morbid obesity: (6) Umbilical hernia: (7) Ventral hernia: (8) Hyperglycemia: (9) Cellulitis of occipital region of scalp: Admission and Anticipated Discharge Date Admission Date: December 12, 2020 Supervising Physician Co-Signing Physician Notes I personally examined the patient and verified all cooper points of history and exam, discussed case, and agree with decision making with Dr Kulkarni. Still has a decent amount of painpain meds are helping. Discussed lifestyleto egg salad sandwiches for breakfast, frequently pasta or other food with a significant bread/starch component for dinner. Drinks diet Mountain Dew Vitals noted, in general he is awake and alert pleasant no distress. Does appear a little bit uncomfortable. HEENT normocephalic atraumatic, back of scalp with large area of erythema, however it is about half of what the previously outlined area is. No clearly palpable areas of fluctuance, but it is somewhat thickened and indurated on the lower half. Scalp cellulitiscontinue vancomycin. Appears to be improving. Serial examsdiscussed with patient no overtly drainable abscess at this time, but occasionally they do develop in the course of treatment. Uncontrolled type 2 diabetesdiscussed relationship of uncontrolled hyperglycemia with immunosuppression leading to more ease of acquiring infections. Also discussed progressive microvascular ischemia at high risk for premature vascular event such as heart attacks and strokes. Discussed the critical role of lifestyle in the management, and/or regression, of type 2 diabetes. He expressed understanding, but a bit of a lament because of noting that most of the sugary and starchy foods are what he really enjoys eating. Discussed main options being med management, lifestyle change, or staying on his current course with anticipation of accumulated health disasters over time. We will continue to educate and discuss as possible. Subjective Patient is tired and in a lot of pain. Says his pain level, however, has come down from a 10 to 7. He begins to notice increased pain 4-5 hours after getting his morphine. Review of Systems Constitutional: no fever, no chills, no sweats and no fatigue Ear, Nose, Mouth, Throat: no hearing loss and no nasal congestion Respiratory: no cough and no dyspnea Cardiovascular: no chest pain, no dyspnea on exertion and no edema Gastrointestinal: no abdominal pain, no nausea, no vomiting, no constipation, no diarrhea/loose stools and no blood in stools Musculoskeletal: no joint pain and no myalgia Integumentary: + wounds, + erythema and + skin swelling Neurologic: + headache(s); no tingling and no numbness Endocrine: no fatigue Physical Exam Physical Exam: Constitutional: obese, moderate to high distress Head: erythematous, swollen, warm cellulitic area extending from posterior right base of neck to above right ear with central draining punctum. Not extended past marked area. Eyes: EOMI, PERRLA, no scleral icterus Cardiac: RRR, no murmurs, gallops or rubs. Normal S1, S2 Pulm: CTA BL, no wheezes, rhonchi, crackles or rubs, moving air well throughout both lungs Abd: soft, nontender, nondistended, normal bowel sounds, no rebound or guarding Extremities: 2+ peripheral pulses, no edema Neuro: no focal deficits, moving all 4 limbs, A&Ox3 Results & Data Results & Data ([facility]) Vital Signs (Past 12 Hours) Vital Signs Temp Pulse Resp BP Pulse Ox 12/13/20 07:52 36.9 C 87 16 135/85 96 12/13/20 07:40 18 96 12/13/20 06:03 14 99 12/13/20 05:56 14 99 12/13/20 05:25 14 99 12/13/20 04:08 14 99 12/13/20 03:30 14 99 12/13/20 03:00 14 99 Resident Activity Tracking Resident Involvement: Resident Care Provided Care Provided: Adult Hospital Medicine
--- NOTE | 2020-12-13 16:23 | Electrocardiogram Report ---
Test Reason : Blood Pressure : / mmHG Vent. Rate : 113 BPM Atrial Rate : 113 BPM P-R Int : 154 ms QRS Dur : 088 ms QT Int : 336 ms P-R-T Axes : 044 -51 015 degrees QTc Int : 460 ms Sinus tachycardia Left anterior fascicular block Poor R wave progression, consider anterior TX vs. lead placement vs. LVH Abnormal ECG When compared with ECG of 30-MAR-2014 22:07, No significant change was found Confirmed by Nirav Bonilla ([id number]) on 12/13/2020 4:23:32 PM Referred By: REFERRED SELF Confirmed By:Nirav Bonilla
[2020-12-13] MEDS ORDERED: VANCOMYCIN TROUGH ONE (17:30)
--- NOTE | 2020-12-13 19:24 | Pharmacy Report ---
Pharmacy Vanc AUC Short Note - Date of Service December 13, 2020 - Assessment & Plan Assessment 45 year old M receiving vancomycin and cefepime for treatment of scalp cellulitis. Day # 2 of antimicrobial therapy. Plan Vancomycin * AUC/LEOBARDO is the preferred PK/PD target for vancomycin * AUC guided dosing is effective and associated with decreased risk of nephrotoxicity compared to traditional trough targets * Trough level was 10.7 mcg/mL. This level was pre-steady state and accumulation anticipated with ongoing therapy. Will continue monitoring levels and may consider a dose decrease in another 24-48 hours. * Continue dose of 1500 mg IV every 8 hours * Trough or random level ordered for: 12/14/20 @0930 Pharmacy will continue to follow and will adjust dose/frequency as necessary. Thank you.
--- NOTE | 2020-12-13 19:34 | Billing Data ---
Date of Service December 13, 2020 Coding Level of Care Code 37937 Subseq Hosp Care Lvl 3
[2020-12-14] MEDS: VANCOMYCIN HCL 1,500 MG in SODIUM CHLORIDE 0.9% 500 ML IV SCH ×3 (02:01→17:32)
[2020-12-14] MEDS: MoRPHine SULFATE 2 MG/ML CARP IV PRN ×2 (03:14→21:01)
[2020-12-14 08:32] LABS: Creatinine Clr Calc Pharmacy 194.3 ml/min; Est GFR (African American) 141.7 ml/min; Est GFR (Non-African American) 122.3 ml/min
[2020-12-14] MEDS ORDERED: VANCOMYCIN TROUGH ONE ×2 (09:30)
[2020-12-14] MEDS: INSULIN GLARGINE SOLOSTAR 100 UNITS/ML 3 ML PEN SC SCH ×2 (09:41→21:03)
[2020-12-14] MEDS: INSULIN ASPART 100 UNITS/ML 3 ML PEN SC SCH ×4 (09:41→21:04)
--- NOTE | 2020-12-14 11:40 | Hospitalist Progress Note ---
Date of Service December 14, 2020 Assessment & Plan (1) Diabetes mellitus type 2, uncontrolled: Plan: 45 yo M with uncontrolled DM2, HLD, HTN, obesity admitted for management of hyperglycemia and scalp/occipital cellulitis. 1. Hyperglycemia - 10 units regular insulin IV x1 in ER - 12 units glargine BID SQ for basal control - SSI with range 110 -150, CF 40, CR 20 adjusted to range 110 -150, CF 30, CR 10 - A1c 11.9 - per patient, can't afford insulin at home and has been trying to control sugars with watching dietary intake - adult educator consulted --> she was able to find the patient cheaper medications (once daily Basaglar + Ozempic weekly (GLP-1 medication to help with wt loss/satiety)), that would be affordable and enable the patient to lower his blood sugars. We will also prescribe him a new glucometer at discharge. - Discussed in depth importance of diet and exercise to improve DM2. 2. Occipital Cellulitis - 3x5x7 cm thickening of skin as noted on CT head without drainable abscess - blood culture pending; wound culture grew staph, sensitivities to follow - warm compresses, elevation of head of bed - started on vanc + cefepime in pt with uncontrolled DM2; now only on vanc based on severity and most common causative bacteria - no signs of intracranial infection - skin marked with pen, monitoring for spread; remains within markings margins 3. Pain - received 4 mg IV morphine in ED for management of head pain from cellulitis - additional 300 mg Gabapentin given to help with nerve compression likely contributing to severe pain- discontinued - continue PO/IV tylenol, morphine 2mg IV Q4H PRN; has been using less morphine for pain control Chronic problems: HTN - not on medication DVT ppx: low risk FEN/GI: DM2 Code Status: full code Dispo: med/surg (2) Dyslipidemia: (3) Hypertension: (4) Incisional hernia: (5) Morbid obesity: (6) Umbilical hernia: (7) Ventral hernia: (8) Hyperglycemia: (9) Cellulitis of occipital region of scalp: Admission and Anticipated Discharge Date Admission Date: December 12, 2020 Supervising Physician Co-Signing Physician Notes I personally examined the patient and verified all cooper points of history and exam, discussed case, and agree with decision making with Dr Kulkarni. Pain improving. Seems more willing to stick to make changes both and diet and medications as it relates to his diabetes. Vitals noted, in general he is awake and alert pleasant no distress. Does appear a little bit uncomfortable. HEENT normocephalic atraumatic, back of scalp with ongoing erythema, but now down to about 25% of the initially outlined area. Most of it is in the lower middle/right of the outlined area still thickened skin, somewhat tender but not nearly as exquisitely as yesterday, no clearly notable areas of fluctuance. Scalp cellulitiscontinue vancomycin. Continues to improve. If ongoing improvement into tomorrow, nothing appears to have settled out as far as an abscess, but hopefully home tomorrow on something on the order of doxycycline. Uncontrolled type 2 diabeteson 12/13 discussed relationship of uncontrolled hyperglycemia with immunosuppression leading to more ease of acquiring infections. Also discussed progressive microvascular ischemia at high risk for premature vascular event such as heart attacks and strokes. Discussed the critical role of lifestyle in the management, and/or regression, of type 2 diabetes. Today we furthered the discussion, and also had great assistance from early childhood special educator. Anticipate going home on Basaglar and Ozempic. Reiterated lifestyle as cooper to control with type 2 diabetes. He expressed an understanding, and a willingness to at least try to start to improve the simple/starchy carbs. Subjective Pain level has come down to a 2/10. Patient feels better and was able to get decent sleep at night. No acute complaints. Review of Systems Constitutional: no fever, no chills, no sweats and no fatigue Respiratory: no cough and no dyspnea Cardiovascular: no chest pain, no dyspnea on exertion and no edema Gastrointestinal: no abdominal pain, no nausea, no vomiting, no constipation, no diarrhea/loose stools and no blood in stools Musculoskeletal: no joint pain and no myalgia Integumentary: + erythema and + skin swelling Neurologic: no tingling, no numbness and no headache(s) Endocrine: no fatigue Physical Exam Physical Exam: Constitutional: obese, minimal distress Head: erythematous, swollen, cellulitic area extending from posterior right base of neck to above right ear with healing central punctum. Not extended past marked area. Less tender to palpation today, however, appearance remains unchanged from yesterday. No abscess formation appreciated. Cardiac: RRR, no murmurs, gallops or rubs. Normal S1, S2 Pulm: CTA BL, no wheezes, rhonchi, crackles or rubs, moving air well throughout both lungs Abd: soft, nontender, nondistended, normal bowel sounds, no rebound or guarding Extremities: 2+ peripheral pulses, no edema Neuro: no focal deficits, moving all 4 limbs, A&Ox3 Results & Data Results & Data ([facility]) Vital Signs (Past 12 Hours) Vital Signs Temp Pulse Resp BP Pulse Ox 12/14/20 09:08 36.5 C 72 16 139/86 97 Resident Activity Tracking Resident Involvement: Resident Care Provided Care Provided: Adult Hospital Medicine
--- NOTE | 2020-12-14 16:30 | Pharmacy Report ---
Pharmacy Abx Dose Short Note - Date of Service December 14, 2020 - Assessment & Plan Assessment 45 year old M receiving vancomycin for treatment of orbital cellulitis- culture growing staph species, will await identification/sensitivities for de-escalation Day # 3 of antimicrobial therapy. Plan Vancomycin * Trough level of 11.4 mcg/mL is therapeutic for cellulitis * Continue dose of 1500 mg every 8 hours, may get repeat trough tomorrow if needed to be continued, patient at risk for accumulation * Goal trough level 10-20 mcg/mL Pharmacy will continue to follow and will adjust dose/frequency as necessary. Thank you.
--- NOTE | 2020-12-14 18:14 | Billing Data ---
Date of Service December 14, 2020 Coding Level of Care Code 30528 Subseq Hosp Care Lvl 3
[2020-12-15] MEDS: VANCOMYCIN HCL 1,500 MG in SODIUM CHLORIDE 0.9% 500 ML IV SCH ×2 (03:00→08:58)
[2020-12-15 08:34] LABS: Est GFR (African American) 137.9 ml/min
[2020-12-15] MEDS: INSULIN ASPART 100 UNITS/ML 3 ML PEN SC SCH ×2 (08:55→13:02)
[2020-12-15] MEDS: INSULIN GLARGINE SOLOSTAR 100 UNITS/ML 3 ML PEN SC SCH (08:56)
--- NOTE | 2020-12-15 13:40 | Discharge Summary ---
Date of Service December 15, 2020 Admission HPI Per Admitting Provider 45 yoM with uncontrolled DM in ER for worsening headache and neck pain. States that he had a pimple "or what i thought was a pimple" on the back right side of his neck a few days ago and proceeded to pop it. He states after that, the irritation started spreading along his head and neck and is now causing constant head/neck pain. Denies any radiation of pain elsewhere. No blurring of vision, lightheadedness,dizziness. Does have pain with flexion, extension, lateral rotation of head bilaterally. Says pain starts in the back right of neck and wraps up the right side of his head. Tried warm and cold compresses at home, ibuprofen, tylenol, excedrin migraine without any relief. No hx of infections like this on his head but has been admitted for groin infections/cysts before. Principal Diagnosis Cellulitis Discharge Exam Constitutional: obese, no acute distress Head: erythematous, less swollen, cellulitic area extending from posterior right base of neck to above right ear with healing central punctum. Not extended past marked area. Continues to lessen in diameter. Less tender to palpation today. No abscess formation appreciated. Cardiac: RRR, no murmurs, gallops or rubs. Normal S1, S2 Pulm: CTA BL, no wheezes, rhonchi, crackles or rubs, moving air well throughout both lungs Abd: soft, nontender, nondistended, normal bowel sounds, no rebound or guarding Extremities: 2+ peripheral pulses, no edema Neuro: no focal deficits, moving all 4 limbs, A&Ox3 Discharge Data Allergies Allergy/AdvReac Type Severity Reaction Status Date / Time house dust Allergy Unknown Chalk dust Verified 12/12/20 20:20 - Unknown latex Allergy Unknown Rash Verified 12/12/20 20:20 No Known Drug Allergies AdvReac Unknown Verified 12/12/20 20:20 Consultations 12/12/20 21:21 ED Decision to Admit Stat Ordered Studies 12/12/20 20:03 CT head/brain w con Stat Diabetes Follow up Diabetes Follow-up Needed for HgbA1c >9% Hospital Course (1) Diabetes mellitus type 2, uncontrolled: 45 yo M with uncontrolled DM2, HLD, HTN, obesity admitted for management of hyperglycemia and scalp/occipital cellulitis. 1. Hyperglycemia - 10 units regular insulin IV x1 in ER - 12 units glargine BID SQ for basal control - SSI with range 110 -150, CF 40, CR 20 adjusted to range 110 -150, CF 30, CR 10, adjusted again to range 110 -150, CF 23, CR 5 - A1c 11.9 - per patient, can't afford insulin at home and has been trying to control sugars with watching dietary intake - family life educator consulted --> she was able to find the patient cheaper medications (once daily Basaglar + Ozempic weekly (GLP-1 medication to help with wt loss/satiety)), that would be affordable and enable the patient to lower his blood sugars. We will also prescribe him a new glucometer at discharge. - Discussed in depth importance of diet and exercise to improve DM2. - Prescribed patient Basaglar 20 units to take daily and Ozempic .25mg to take weekly for the first 4 weeks. Also prescribed a glucometer and advised him to check his blood glucose 4x daily 1-2 hours after meals. -Patient should follow up with his PCP with a sugar log for further management. 2. Occipital Cellulitis - 3x5x7 cm thickening of skin as noted on CT head without drainable abscess - blood culture pending; wound culture grew staph, sensitivities to follow - warm compresses, elevation of head of bed - started on vanc + cefepime in pt with uncontrolled DM2; now only on vanc based on severity and most common causative bacteria - no signs of intracranial infection - skin marked with pen, monitoring for spread; remains within markings margins -Will continue abx home- prescribed doxycycline for another ~7 days. 3. Pain - received 4 mg IV morphine in ED for management of head pain from cellulitis - additional 300 mg Gabapentin given to help with nerve compression likely contributing to severe pain- discontinued - continue PO/IV tylenol, morphine 2mg IV Q4H PRN; has been using less morphine for pain control; pain level now at a 0-2/10. Chronic problems: HTN - not on medication -Can discuss management with his PCP if he wishes to do so. (2) Dyslipidemia: (3) Hypertension: (4) Incisional hernia: (5) Morbid obesity: (6) Umbilical hernia: (7) Ventral hernia: (8) Hyperglycemia: (9) Cellulitis of occipital region of scalp: Total Time Total Time Spent Total Time Spent (In Minutes): <30 Discharge Plan Discharge Items Patient Disposition: Home - Self-Care Reason For Visit: HEAD CELLULITIS Discharge Diagnosis: cellulitis Activity: Per Instructions section Non-emergency contact: Primary Care Provider Call non-emergency contact if: you have any medication questions and your symptoms worsen Follow-up/Referrals: Jackeline Yeager MD [Primary Care Provider] - 12/24/20 11:20 am Diet: Carb Consistent or DM2 Addtl Attending Provider Instructions: You were admitted to the hospital for developing a skin infection known as cellulitis on the back of your head/neck region. We gave you IV antibiotics in the hospital as well as aided managing your pain through the healing process. Your pain level has improved significantly and the cellulitis appears much improved since you arrived. Going forward, I have prescribed you an oral antibiotic which you should take as instructed. Be sure to finish the entire medication. Your infection should continue to heal. The wound may drain which is part of the healing process. For wound management, use soap and water and refrain from rubbing the wound on dirty surfaces. For pain control, you can use over the counter NSAIDs (up to 2400mg daily) or Tylenol (up to 4000mg daily). If your symptoms worsen or you develop a fever, please contact your primary care provider for further instruction. As for your diabetes, at the end of your hospital stay, we were able to get your sugars down to the mid 100s with about 60 units of short acting and long acting insulin daily. After consulting the family life educator who was able to speak with you, we determined it would be beneficial and cost effective to give you insulin glargine (basaglar) which a long acting insulin which you should take every day. We will also put you on Ozempic (starting dose is 0.25mg weekly x 4 weeks) which is a GLP-2 inhibitor further lowering your glucose levels. Furthermore, you will need OneTouch Verio Test Strips (to check 4x/day), OneTouch Delica lancets 33 gauge (to check 4x/day), and insulin pen needles (32 gauge x 5/32). You should check your levels 1-2 hours after eating meals to see how high your glucose levels get. Remember that any glucose level over 150 at these times is detrimental to your health. Follow up with your primary care will be needed to further manage/adjust your medications. Aside from medications, we discussed lifestyle changes being the most effective, cheapest method for treating your diabetes. You should limit your carbs and try to cut out pastas from your diet. Try to eat more veggies and lean meats ins tead. Exercise for a minimum of 30min/day daily. With both lifestyle changes and medication management, I have no doubt we can lower you blood glucose levels and overcome your diabetes. Pending Studies at Discharge: No Stand-Alone Forms: [facility] [place], Work/School Release, Smoking Cessation Medications and DC Order Prescriptions: New doxycycline hyclate 100 mg tablet 100 mg PO BID 7 Days Qty: 14 RF: 0 Basaglar KwikPen U-100 Insulin 100 unit/mL (3 mL) insulin pen 20 unit subcut DAILY Qty: 6 RF: 0 Ozempic 0.25 mg or 0.5 mg(2 mg/1.5 mL) pen injector 0.25 mg subcut .weekly Qty: 1.5 RF: 0 (DME) lancets [OneTouch Delica Lancets] 33 gauge misc See Rx Instructions .Route Qty: 150 RF: 0 (DME) pen needle, diabetic 32 gauge x 5/32" needle See Rx Instructions .Route Qty: 50 RF: 0 (DME) blood-glucose meter [OneTouch Verio Meter] Misc See Rx Instructions .Route Qty: 1 RF: 0 (DME) OneTouch Verio test strips Strip See Rx Instructions .Route Qty: 100 RF: 0 Continued multivitamin Tablet 1 tab PO QAM RF: 0 Discharge Orders: Discharge Order (Routine); Ordered 12/15/20 Ordered By: Mason Lemon/Other Patient Handouts: Discharge Instructions for Cellulitis Admission Data Admit Date/Time: 12/12/20 22:17 Attending Provider: Ivan Hager Admit Provider: Janette Kulkarni Primary Care Provider: Jackeline Yeager V. Other Providers: Pricilla Spangler Other Interventions: Discharge Summary Assessment (RN) Last Done: 12/15/20 12:45 Supervising Physician Co-Signing Physician Notes I personally examined the patient and verified all cooper points of history and exa m, discussed case, and agree with decision making with Dr Kulkarni. Overall improving. Pain better controlled. Feels up to going home. Did have a little bit of drainage from the area on the back of his scalp last night. Vitals noted, in general he is awake and alert pleasant no distress. Does appear a little bit uncomfortable. HEENT normocephalic atraumatic, back of scalp with improving erythema, but now down significantly, most of it is in the lower middle/right of the outlined area still thickened skin, minimally tender and overall getting softer. Still somewhat indurated, no clearly overt discrete area of fluctuance. Scalp cellulitisimproved on vancomycin. Stable for home on doxycycline. Outpatient follow-updiscussed with patient that it appears unlikely this will form an abscess, but that it still potentially couldbut nothing would require urgent intervention. Therefore would want to continue to treat with a course of antibiotics and serial follow-up before considering whether or not to reevaluate for drainage, given that nothing appears overtly drainable at this time, and with further antibiotics, hopefully the situation will continue to improve. Uncontrolled type 2 diabetesduring hospital stay we discussed relationship of uncontrolled hyperglycemia with immunosuppression leading to more ease of acquiring infections. Also discussed progressive microvascular ischemia at high risk for premature vascular event such as heart attacks and strokes. Discussed the critical role of lifestyle in the management, and/or regression, of type 2 diabetes. Discussed checking postprandial glucoses to learn from his body/learn what foods are causing him problems, and start to avoid them. Home on glargine and Ozempic. Otherwise as above. Resident Activity Tracking Resident Involvement: Resident Care Provided Care Provided: Adult Hospital Medicine
--- NOTE | 2020-12-15 17:54 | Billing Data ---
Date of Service December 15, 2020 Coding Level of Care Code D/C DAY MANAGEMENT <30 MINS
== END 2020-12-15 14:47 | disposition home or self-care (01) | DRG 603 ==
LOC: ED 19:34 → 3N 22:17 → SUATTDRO 22:17 → 3N 23:55